=== PATIENT | female | born 1965 | race Caucasian/White ===

== ENCOUNTER 2020-05-22 12:21 | Inpatient (IN) ==
[2020-05-22] MEDS ORDERED: Ondansetron ODT 4 MG TAB.RAPDIS PO PRN (14:49)
[2020-05-22] MEDS: *HR* OxyCODONE Immed Rel 5 MG TABLET PO PRN ×2 (15:21→21:17)
[2020-05-22] MEDS: carvediloL 25 MG TABLET PO SCH (16:44)
[2020-05-22] MEDS: Furosemide 20 MG TABLET PO SCH (16:45)
[2020-05-22] MEDS: Apixaban 5 MG TABLET PO SCH (21:16)
[2020-05-22] MEDS: Sacubitril/Valsartan 24/26 MG 1 TABLET PO SCH (21:20)
[2020-05-23] MEDS: *HR* OxyCODONE Immed Rel 5 MG TABLET PO PRN ×2 (06:21→15:26)
[2020-05-23 06:42] LABS: Basophils # 0.1 K/mcL (0.0-0.2); Basophils % 0.8 %; Eosinophils # 0.5 K/mcL (0.0-0.6); Eosinophils % 7.6 %; Hematocrit 37.9 % (35.3-44.9); Hemoglobin 11.8 g/dL (11.5-15.4); Immature Granulocytes % 0.2 % (0-4); Lymphocytes # 1.3 K/mcL (0.6-4.6); Lymphocytes % 20.2 %; Mean Corpuscular HGB Conc 31.1 g/dL (31.6-35.5); Mean Corpuscular Hemoglobin 29.9 pg (28.0-33.3); Mean Corpuscular Volume 96.2 fL (83.0-100.0); Mean Platelet Volume 10.1 fL (9.4-12.4); Monocytes # 0.6 K/mcL (0.0-1.3); Monocytes % 9.9 %; Platelet Count 315 K/mcL (140-400); Red Blood Count 3.94 M/mcL (3.82-4.97); Red Cell Distribution Width 14.8 % (11.5-14.5); Segmented Neutrophils % 61.3 %; White Blood Count 6.5 K/mcL (4.3-11.1)
[2020-05-23 07:00] LABS: BUN/Creatinine Ratio 28 (6-26); Blood Urea Nitrogen 22 mg/dL (6-20); Calcium 9.5 mg/dL (8.6-10.3); Carbon Dioxide 35 mEq/L (23-29); Chloride 101 mEq/L (98-107); Glucose 95 mg/dL (70-105); Osmolality,Calculated 293 (280-300); Sodium 140 mEq/L (136-145); eGFR For African Americans > 60 (> 60); eGFR For Non-African Americans > 60 (> 60)
[2020-05-23] MEDS: Multivit/Ca/Min/Fe/FA 1 TAB TABLET PO SCH (08:33)
[2020-05-23] MEDS: DilTIAZem CD (24hr) 180 MG CAP.ER.24H PO SCH (08:33)
[2020-05-23] MEDS: Spironolactone 25 MG TABLET PO SCH (08:33)
[2020-05-23] MEDS: Apixaban 5 MG TABLET PO SCH ×2 (08:33→21:56)
[2020-05-23] MEDS: carvediloL 25 MG TABLET PO SCH ×2 (08:33→17:27)
[2020-05-23] MEDS: Aspirin Enteric Coated 81 MG Tablet PO SCH (08:33)
[2020-05-23] MEDS: Furosemide 20 MG TABLET PO SCH (08:34)
[2020-05-23] MEDS: Cyanocobalamin (B-12) 1,000 MCG TABLET PO SCH (08:34)
[2020-05-23] MEDS: Loratadine 10 MG TABLET PO SCH (08:34)
[2020-05-23] MEDS: Acetaminophen 325 MG TABLET PO PRN ×2 (08:41→21:55)
[2020-05-23] MEDS: Sacubitril/Valsartan 24/26 MG 1 TABLET PO SCH ×2 (08:42→21:38)
[2020-05-23] MEDS ORDERED: SUMAtriptan succinate 50 MG TABLET PO PRN (10:38)
[2020-05-23] MEDS ORDERED: *HR* OxyCODONE Immed Rel 5 MG TABLET PO SCH ×2 (10:45→18:00)
[2020-05-24] MEDS: *HR* OxyCODONE Immed Rel 5 MG TABLET PO PRN ×4 (00:17→23:32)
[2020-05-24 08:03] LABS: Alanine Aminotransferase 9 Units/L (7-52); Albumin 3.1 g/dL (3.5-5.7); Albumin/Globulin Ratio 0.9 (1.1-2.2); Alkaline Phosphatase 93 Units/L (34-104); Aspartate Amino Transferase 12 Units/L (13-39); BUN/Creatinine Ratio 27 (6-26); Bilirubin,Total 0.5 mg/dL (0.3-1.0); Blood Urea Nitrogen 21 mg/dL (6-20); Calcium 9.3 mg/dL (8.6-10.3); Carbon Dioxide 29 mEq/L (23-29); Chloride 103 mEq/L (98-107); Globulin 3.4 g/dL (2.4-3.5); Glucose 89 mg/dL (70-105); Magnesium 1.9 mg/dL (1.6-2.6); Osmolality,Calculated 292 (280-300); Potassium 3.9 mEq/L (3.5-5.1); Sodium 140 mEq/L (136-145); Total Protein 6.5 g/dL (6.4-8.9); eGFR For African Americans > 60 (> 60); eGFR For Non-African Americans > 60 (> 60)
[2020-05-24] MEDS ORDERED: *HR* OxyCODONE Immed Rel 5 MG TABLET PO SCH (09:00)
[2020-05-24] MEDS: DilTIAZem CD (24hr) 180 MG CAP.ER.24H PO SCH (09:02)
[2020-05-24] MEDS: Spironolactone 25 MG TABLET PO SCH (09:03)
[2020-05-24] MEDS: Apixaban 5 MG TABLET PO SCH ×2 (09:03→20:46)
[2020-05-24] MEDS: Aspirin Enteric Coated 81 MG Tablet PO SCH (09:03)
[2020-05-24] MEDS: Cyanocobalamin (B-12) 1,000 MCG TABLET PO SCH (09:03)
[2020-05-24] MEDS: Loratadine 10 MG TABLET PO SCH (09:03)
[2020-05-24] MEDS: Furosemide 40 MG TABLET PO SCH (09:03)
[2020-05-24] MEDS: Multivit/Ca/Min/Fe/FA 1 TAB TABLET PO SCH (09:03)
[2020-05-24] MEDS: Sacubitril/Valsartan 24/26 MG 1 TABLET PO SCH ×2 (09:03→20:47)
[2020-05-24] MEDS: carvediloL 25 MG TABLET PO SCH ×2 (09:04→17:14)
[2020-05-24] MEDS: Acetaminophen 325 MG TABLET PO PRN (20:46)
[2020-05-25] MEDS: Furosemide 40 MG TABLET PO SCH (08:20)
[2020-05-25] MEDS: Loratadine 10 MG TABLET PO SCH (08:20)
[2020-05-25] MEDS: Aspirin Enteric Coated 81 MG Tablet PO SCH (08:20)
[2020-05-25] MEDS: Apixaban 5 MG TABLET PO SCH ×2 (08:20→20:58)
[2020-05-25] MEDS: *HR* OxyCODONE Immed Rel 5 MG TABLET PO PRN ×2 (08:20→20:59)
[2020-05-25] MEDS: Multivit/Ca/Min/Fe/FA 1 TAB TABLET PO SCH (08:20)
[2020-05-25] MEDS: carvediloL 25 MG TABLET PO SCH ×2 (08:21→16:58)
[2020-05-25] MEDS: Cyanocobalamin (B-12) 1,000 MCG TABLET PO SCH (08:21)
[2020-05-25] MEDS: Spironolactone 25 MG TABLET PO SCH (08:21)
[2020-05-25] MEDS: DilTIAZem CD (24hr) 180 MG CAP.ER.24H PO SCH (08:21)
[2020-05-25] MEDS: Sacubitril/Valsartan 24/26 MG 1 TABLET PO SCH ×2 (08:25→20:58)
[2020-05-25 09:20] LABS: Alanine Aminotransferase 8 Units/L (7-52); Albumin 3.1 g/dL (3.5-5.7); Albumin/Globulin Ratio 0.9 (1.1-2.2); Alkaline Phosphatase 94 Units/L (34-104); Aspartate Amino Transferase 13 Units/L (13-39); BUN/Creatinine Ratio 21 (6-26); Bilirubin,Total 0.5 mg/dL (0.3-1.0); Blood Urea Nitrogen 16 mg/dL (6-20); Calcium 9.3 mg/dL (8.6-10.3); Carbon Dioxide 32 mEq/L (23-29); Chloride 104 mEq/L (98-107); Globulin 3.5 g/dL (2.4-3.5); Glucose 90 mg/dL (70-105); Magnesium 1.9 mg/dL (1.6-2.6); Osmolality,Calculated 291 (280-300); Potassium 3.9 mEq/L (3.5-5.1); Sodium 140 mEq/L (136-145); Total Protein 6.6 g/dL (6.4-8.9); eGFR For African Americans > 60 (> 60); eGFR For Non-African Americans > 60 (> 60)
[2020-05-26] MEDS: Acetaminophen 325 MG TABLET PO PRN ×2 (01:01→21:46)
[2020-05-26] MEDS: *HR* OxyCODONE Immed Rel 5 MG TABLET PO PRN ×2 (06:40→14:33)
[2020-05-26] MEDS: Aspirin Enteric Coated 81 MG Tablet PO SCH (09:01)
[2020-05-26] MEDS: Apixaban 5 MG TABLET PO SCH ×2 (09:01→20:05)
[2020-05-26] MEDS: carvediloL 25 MG TABLET PO SCH ×2 (09:01→15:50)
[2020-05-26] MEDS: Loratadine 10 MG TABLET PO SCH (09:01)
[2020-05-26] MEDS: Multivit/Ca/Min/Fe/FA 1 TAB TABLET PO SCH (09:02)
[2020-05-26] MEDS: Spironolactone 25 MG TABLET PO SCH (09:02)
[2020-05-26] MEDS: DilTIAZem CD (24hr) 180 MG CAP.ER.24H PO SCH (09:02)
[2020-05-26] MEDS: Furosemide 40 MG TABLET PO SCH (09:02)
[2020-05-26] MEDS: Cyanocobalamin (B-12) 1,000 MCG TABLET PO SCH (09:02)
[2020-05-26] MEDS: Sacubitril/Valsartan 24/26 MG 1 TABLET PO SCH ×2 (09:05→19:52)
[2020-05-26 12:45] LABS: Alanine Aminotransferase 8 Units/L (7-52); Albumin 3.3 g/dL (3.5-5.7); Albumin/Globulin Ratio 0.9 (1.1-2.2); Alkaline Phosphatase 102 Units/L (34-104); Aspartate Amino Transferase 13 Units/L (13-39); BUN/Creatinine Ratio 20 (6-26); Bilirubin,Total 0.5 mg/dL (0.3-1.0); Blood Urea Nitrogen 15 mg/dL (6-20); Calcium 9.3 mg/dL (8.6-10.3); Carbon Dioxide 30 mEq/L (23-29); Chloride 105 mEq/L (98-107); Globulin 3.7 g/dL (2.4-3.5); Glucose 77 mg/dL (70-105); Magnesium 1.9 mg/dL (1.6-2.6); Osmolality,Calculated 296 (280-300); Potassium 3.9 mEq/L (3.5-5.1); Sodium 143 mEq/L (136-145); eGFR For African Americans > 60 (> 60); eGFR For Non-African Americans > 60 (> 60)
[2020-05-26] MEDS: Magnesium Oxide 400 MG TABLET PO SCH (14:33)
[2020-05-26] MEDS ORDERED: 0.9 % Sodium Chloride 1,000 ML IVC ONE (23:24)
[2020-05-26] MEDS: Ibuprofen 800 MG TABLET PO PRN (23:49)
[2020-05-27 07:27] LABS: Alanine Aminotransferase 6 Units/L (7-52); Albumin 2.9 g/dL (3.5-5.7); Albumin/Globulin Ratio 0.9 (1.1-2.2); Alkaline Phosphatase 88 Units/L (34-104); Aspartate Amino Transferase 9 Units/L (13-39); BUN/Creatinine Ratio 21 (6-26); Bilirubin,Total 0.5 mg/dL (0.3-1.0); Blood Urea Nitrogen 17 mg/dL (6-20); Calcium 8.7 mg/dL (8.6-10.3); Carbon Dioxide 32 mEq/L (23-29); Chloride 103 mEq/L (98-107); Globulin 3.2 g/dL (2.4-3.5); Glucose 89 mg/dL (70-105); Magnesium 1.9 mg/dL (1.6-2.6); Osmolality,Calculated 287 (280-300); Sodium 138 mEq/L (136-145); Total Protein 6.1 g/dL (6.4-8.9); eGFR For African Americans > 60 (> 60); eGFR For Non-African Americans > 60 (> 60)
[2020-05-27] MEDS: *HR* OxyCODONE Immed Rel 5 MG TABLET PO PRN ×2 (08:30→16:50)
[2020-05-27] MEDS: DilTIAZem CD (24hr) 180 MG CAP.ER.24H PO SCH (08:31)
[2020-05-27] MEDS: Cyanocobalamin (B-12) 1,000 MCG TABLET PO SCH (08:31)
[2020-05-27] MEDS: Multivit/Ca/Min/Fe/FA 1 TAB TABLET PO SCH (08:31)
[2020-05-27] MEDS: Sacubitril/Valsartan 24/26 MG 1 TABLET PO SCH ×2 (08:31→19:56)
[2020-05-27] MEDS: Furosemide 40 MG TABLET PO SCH (08:32)
[2020-05-27] MEDS: carvediloL 25 MG TABLET PO SCH (08:32)
[2020-05-27] MEDS: Magnesium Oxide 400 MG TABLET PO SCH (08:32)
[2020-05-27] MEDS: Aspirin Enteric Coated 81 MG Tablet PO SCH (08:32)
[2020-05-27] MEDS: Loratadine 10 MG TABLET PO SCH (08:32)
[2020-05-27] MEDS: Apixaban 5 MG TABLET PO SCH ×2 (08:32→19:55)
[2020-05-27] MEDS: Spironolactone 25 MG TABLET PO SCH (08:32)
[2020-05-27] MEDS: Acetaminophen 325 MG TABLET PO PRN (13:03)
[2020-05-27] MEDS: carvediloL 6.25 MG TABLET PO SCH (16:41)
[2020-05-27] MEDS: Ibuprofen 800 MG TABLET PO PRN (19:55)
[2020-05-28] MEDS: *HR* OxyCODONE Immed Rel 5 MG TABLET PO PRN ×4 (01:19→21:46)
[2020-05-28 06:57] LABS: Alanine Aminotransferase 7 Units/L (7-52); Albumin/Globulin Ratio 0.9 (1.1-2.2); Alkaline Phosphatase 103 Units/L (34-104); Aspartate Amino Transferase 9 Units/L (13-39); BUN/Creatinine Ratio 22 (6-26); Bilirubin,Total 0.5 mg/dL (0.3-1.0); Blood Urea Nitrogen 20 mg/dL (6-20); Calcium 8.7 mg/dL (8.6-10.3); Carbon Dioxide 33 mEq/L (23-29); Chloride 103 mEq/L (98-107); Globulin 3.3 g/dL (2.4-3.5); Glucose 80 mg/dL (70-105); Osmolality,Calculated 290 (280-300); Potassium 4.3 mEq/L (3.5-5.1); Sodium 139 mEq/L (136-145); Total Protein 6.3 g/dL (6.4-8.9); eGFR For African Americans > 60 (> 60); eGFR For Non-African Americans > 60 (> 60)
[2020-05-28] MEDS: Apixaban 5 MG TABLET PO SCH ×2 (08:41→21:46)
[2020-05-28] MEDS: Loratadine 10 MG TABLET PO SCH (08:42)
[2020-05-28] MEDS: DilTIAZem CD (24hr) 180 MG CAP.ER.24H PO SCH (08:42)
[2020-05-28] MEDS: Aspirin Enteric Coated 81 MG Tablet PO SCH (08:42)
[2020-05-28] MEDS: Cyanocobalamin (B-12) 1,000 MCG TABLET PO SCH (08:42)
[2020-05-28] MEDS: Magnesium Oxide 400 MG TABLET PO SCH (08:42)
[2020-05-28] MEDS: Spironolactone 25 MG TABLET PO SCH (08:43)
[2020-05-28] MEDS: Sacubitril/Valsartan 24/26 MG 1 TABLET PO SCH ×2 (08:43→21:46)
[2020-05-28] MEDS: Multivit/Ca/Min/Fe/FA 1 TAB TABLET PO SCH (08:43)
[2020-05-28] MEDS: carvediloL 6.25 MG TABLET PO SCH ×2 (08:43→16:23)
[2020-05-28] MEDS: Furosemide 40 MG TABLET PO SCH (08:43)
[2020-05-28] MEDS: Acetaminophen 325 MG TABLET PO PRN (11:40)
[2020-05-29] MEDS: *HR* OxyCODONE Immed Rel 5 MG TABLET PO PRN ×3 (03:05→17:15)
[2020-05-29] MEDS: Multivit/Ca/Min/Fe/FA 1 TAB TABLET PO SCH (09:18)
[2020-05-29] MEDS: DilTIAZem CD (24hr) 180 MG CAP.ER.24H PO SCH (09:19)
[2020-05-29] MEDS: Loratadine 10 MG TABLET PO SCH (09:20)
[2020-05-29] MEDS: Furosemide 40 MG TABLET PO SCH (09:20)
[2020-05-29] MEDS: carvediloL 6.25 MG TABLET PO SCH ×2 (09:21→17:16)
[2020-05-29] MEDS: Cyanocobalamin (B-12) 1,000 MCG TABLET PO SCH (09:21)
[2020-05-29] MEDS: Spironolactone 25 MG TABLET PO SCH (09:21)
[2020-05-29] MEDS: Aspirin Enteric Coated 81 MG Tablet PO SCH (09:21)
[2020-05-29] MEDS: Sacubitril/Valsartan 24/26 MG 1 TABLET PO SCH ×2 (09:22→20:41)
[2020-05-29] MEDS: Apixaban 5 MG TABLET PO SCH ×2 (09:22→20:41)
[2020-05-29] MEDS: Magnesium Oxide 400 MG TABLET PO SCH (09:22)
[2020-05-29] MEDS: Acetaminophen 325 MG TABLET PO PRN ×2 (12:08→20:41)
[2020-05-30] MEDS: *HR* OxyCODONE Immed Rel 5 MG TABLET PO PRN ×2 (00:41→08:08)
[2020-05-30 07:17] VITALS: BP 119/79
[2020-05-30] MEDS: Multivit/Ca/Min/Fe/FA 1 TAB TABLET PO SCH (08:07)
[2020-05-30] MEDS: Loratadine 10 MG TABLET PO SCH (08:07)
[2020-05-30] MEDS: Magnesium Oxide 400 MG TABLET PO SCH (08:07)
[2020-05-30] MEDS: Apixaban 5 MG TABLET PO SCH (08:07)
[2020-05-30] MEDS: Furosemide 40 MG TABLET PO SCH (08:08)
[2020-05-30] MEDS: carvediloL 6.25 MG TABLET PO SCH (08:08)
[2020-05-30] MEDS: Spironolactone 25 MG TABLET PO SCH (08:08)
[2020-05-30] MEDS: DilTIAZem CD (24hr) 180 MG CAP.ER.24H PO SCH (08:08)
[2020-05-30] MEDS: Aspirin Enteric Coated 81 MG Tablet PO SCH (08:08)
[2020-05-30] MEDS: Cyanocobalamin (B-12) 1,000 MCG TABLET PO SCH (08:08)
[2020-05-30] MEDS: Acetaminophen 325 MG TABLET PO PRN (10:30)
[2020-05-30] MEDS: Sacubitril/Valsartan 24/26 MG 1 TABLET PO SCH (12:22)
== END 2020-05-30 15:21 | disposition home health service (06) | DRG 945 ==
LOC: INPPIK 14:32
PROVIDERS: ADMIT Family Medicine; ATTEND Family Medicine

== ENCOUNTER 2021-01-09 11:16 | Inpatient (IN) ==
[2021-01-09] MEDS ORDERED: 0.9 % Sodium Chloride 1,000 ML IV ONE (11:33)
[2021-01-09 11:56] LABS: Basophils % 0.3 %; Eosinophils # 0.1 K/mcL (0.0-0.6); Eosinophils % 1.4 %; Hematocrit 35.1 % (35.3-44.9); Hemoglobin 11.3 g/dL (11.5-15.4); Immature Granulocytes % 0.3 % (0-4); Lymphocytes # 1.2 K/mcL (0.6-4.6); Lymphocytes % 18.1 %; Mean Corpuscular HGB Conc 32.2 g/dL (31.6-35.5); Mean Corpuscular Hemoglobin 30.7 pg (28.0-33.3); Mean Corpuscular Volume 95.4 fL (83.0-100.0); Mean Platelet Volume 10.9 fL (9.4-12.4); Monocytes # 0.6 K/mcL (0.0-1.3); Monocytes % 8.6 %; Neutrophils # 4.7 K/mcL (1.6-8.9); Platelet Count 232 K/mcL (140-400); Red Blood Count 3.68 M/mcL (3.82-4.97); Red Cell Distribution Width 14.3 % (11.5-14.5); Segmented Neutrophils % 71.3 %; White Blood Count 6.6 K/mcL (4.3-11.1)
[2021-01-09 12:07] LABS: INR 1.3; Prothrombin Time 14.3 Seconds (9.4-12.1)
[2021-01-09 12:11] LABS: Alanine Aminotransferase 12 Units/L (7-52); Albumin 3.8 g/dL (3.5-5.7); Albumin/Globulin Ratio 0.9 (1.1-2.2); Alkaline Phosphatase 56 Units/L (34-104); Aspartate Amino Transferase 12 Units/L (13-39); BUN/Creatinine Ratio 26 (6-26); Bilirubin,Total 0.6 mg/dL (0.3-1.0); Blood Urea Nitrogen 26 mg/dL (6-20); Calcium 10.1 mg/dL (8.6-10.3); Carbon Dioxide 26 mEq/L (23-29); Chloride 104 mEq/L (98-107); Globulin 4.1 g/dL (2.4-3.5); Glucose 101 mg/dL (70-105); Osmolality,Calculated 291 (280-300); Sodium 138 mEq/L (136-145); Total Protein 7.9 g/dL (6.4-8.9); eGFR For African Americans > 60 (> 60); eGFR For Non-African Americans 57 (> 60)
[2021-01-09] MEDS ORDERED: Doxycycline 100 MG in 0.9 % Sodium Chloride Mini Bag 100 ML IVPB ONE (12:49)
[2021-01-09] MEDS ORDERED: Furosemide 20 MG/2 ML VIAL IVP ONE (12:52)
[2021-01-09] MEDS: Furosemide 40 MG/4 ML VIAL IVP ONE ×2 (12:55)
[2021-01-09] MEDS ORDERED: Ondansetron 4 MG/2 ML VIAL IVP PRN (13:35)
[2021-01-09] MEDS ORDERED: Naloxone 0.4 MG/ML INJ IVP PRN (13:35)
[2021-01-09] MEDS ORDERED: Ipratropium/Albuterol Neb 3 ML IH PRN (13:45)
[2021-01-09] MEDS ORDERED: SUMAtriptan succinate 50 MG TABLET PO PRN (13:45)
[2021-01-09] MEDS: Acetaminophen 325 MG TABLET PO PRN (17:12)
[2021-01-09] MEDS: carvediloL 6.25 MG TABLET PO SCH (17:13)
[2021-01-09] MEDS ORDERED: *HR* Metoprolol 5 MG/5 ML VIAL IVP PRN (18:37)
[2021-01-09] MEDS: Apixaban 5 MG TABLET PO SCH (20:45)
[2021-01-09] MEDS: Sacubitril/Valsartan 24/26 MG 1 TABLET PO SCH (20:45)
[2021-01-09] MEDS: Furosemide 20 MG/2 ML VIAL IVP SCH (20:49)
[2021-01-10] MEDS: Doxycycline 100 MG in 0.9 % Sodium Chloride Mini Bag 100 ML IVPB SCH ×2 (00:18→16:23)
[2021-01-10] MEDS: Acetaminophen 325 MG TABLET PO PRN ×2 (07:59→19:41)
[2021-01-10] MEDS: Cyanocobalamin (B-12) 1,000 MCG TABLET PO SCH (08:00)
[2021-01-10] MEDS: Furosemide 20 MG/2 ML VIAL IVP SCH ×2 (08:00→19:42)
[2021-01-10] MEDS: Sacubitril/Valsartan 24/26 MG 1 TABLET PO SCH ×2 (08:00→19:42)
[2021-01-10] MEDS: DilTIAZem CD (24hr) 180 MG CAP.ER.24H PO SCH (08:00)
[2021-01-10] MEDS: carvediloL 6.25 MG TABLET PO SCH ×4 (08:00→16:36)
[2021-01-10] MEDS: Aspirin Enteric Coated 81 MG Tablet PO SCH (08:00)
[2021-01-10] MEDS: Spironolactone 25 MG TABLET PO SCH (08:00)
[2021-01-10] MEDS: Loratadine 10 MG TABLET PO SCH (08:00)
[2021-01-10] MEDS: Magnesium Oxide 400 MG TABLET PO SCH (08:00)
[2021-01-10] MEDS: Apixaban 5 MG TABLET PO SCH ×2 (08:00→19:41)
[2021-01-10] MEDS: Multivit/Ca/Min/Fe/FA 1 TAB TABLET PO SCH (08:00)
[2021-01-10 08:24] LABS: Hematocrit 31.8 % (35.3-44.9); Hemoglobin 10.2 g/dL (11.5-15.4); Mean Corpuscular HGB Conc 32.1 g/dL (31.6-35.5); Mean Corpuscular Hemoglobin 30.9 pg (28.0-33.3); Mean Corpuscular Volume 96.4 fL (83.0-100.0); Mean Platelet Volume 10.7 fL (9.4-12.4); Platelet Count 272 K/mcL (140-400); Red Cell Distribution Width 14.4 % (11.5-14.5); White Blood Count 5.3 K/mcL (4.3-11.1)
[2021-01-10 08:41] LABS: BUN/Creatinine Ratio 26 (6-26); Blood Urea Nitrogen 24 mg/dL (6-20); Calcium 9.3 mg/dL (8.6-10.3); Carbon Dioxide 28 mEq/L (23-29); Chloride 109 mEq/L (98-107); Chol/HDL Ratio 3.7 (0-4.9); Cholesterol 146 mg/dL (< 200); Glucose 81 mg/dL (70-105); HDL Cholesterol 40 mg/dL (40-59); LDL Cholesterol,Calculated 93 mg/dL (< 100); Magnesium 2.1 mg/dL (1.6-2.6); Osmolality,Calculated 295 (280-300); Potassium 3.8 mEq/L (3.5-5.1); Sodium 141 mEq/L (136-145); Triglycerides 66 mg/dL (< 150); eGFR For African Americans > 60 (> 60); eGFR For Non-African Americans > 60 (> 60)
[2021-01-11] MEDS: Doxycycline 100 MG in 0.9 % Sodium Chloride Mini Bag 100 ML IVPB SCH (01:17)
[2021-01-11 06:25] VITALS: BP 122/77; PULSE 101; RESP 21; TEMP 98.4; O2SAT 98
[2021-01-11] MEDS: Acetaminophen 325 MG TABLET PO PRN ×2 (07:27→16:05)
[2021-01-11] MEDS: Sacubitril/Valsartan 24/26 MG 1 TABLET PO SCH (07:28)
[2021-01-11] MEDS: Spironolactone 25 MG TABLET PO SCH (07:28)
[2021-01-11] MEDS: Multivit/Ca/Min/Fe/FA 1 TAB TABLET PO SCH (07:28)
[2021-01-11] MEDS: Aspirin Enteric Coated 81 MG Tablet PO SCH (07:28)
[2021-01-11] MEDS: Cyanocobalamin (B-12) 1,000 MCG TABLET PO SCH (07:28)
[2021-01-11] MEDS: carvediloL 6.25 MG TABLET PO SCH ×4 (07:28→16:06)
[2021-01-11] MEDS: DilTIAZem CD (24hr) 180 MG CAP.ER.24H PO SCH (07:28)
[2021-01-11] MEDS: Magnesium Oxide 400 MG TABLET PO SCH (07:29)
[2021-01-11] MEDS: Apixaban 5 MG TABLET PO SCH (07:29)
[2021-01-11] MEDS: Furosemide 20 MG/2 ML VIAL IVP SCH (07:29)
[2021-01-11] MEDS: Loratadine 10 MG TABLET PO SCH (07:29)
[2021-01-11 08:22] LABS: Basophils # 0.1 K/mcL (0.0-0.2); Eosinophils # 0.2 K/mcL (0.0-0.6); Eosinophils % 3.7 %; Hematocrit 32.2 % (35.3-44.9); Immature Granulocytes % 0.5 % (0-4); Lymphocytes # 1.8 K/mcL (0.6-4.6); Lymphocytes % 32.1 %; Mean Corpuscular HGB Conc 31.1 g/dL (31.6-35.5); Mean Corpuscular Hemoglobin 30.1 pg (28.0-33.3); Mean Platelet Volume 10.2 fL (9.4-12.4); Monocytes # 0.6 K/mcL (0.0-1.3); Monocytes % 10.6 %; Platelet Count 267 K/mcL (140-400); Red Blood Count 3.32 M/mcL (3.82-4.97); Red Cell Distribution Width 14.1 % (11.5-14.5); Segmented Neutrophils % 52.1 %; White Blood Count 5.7 K/mcL (4.3-11.1)
[2021-01-11 08:36] LABS: BUN/Creatinine Ratio 21 (6-26); Blood Urea Nitrogen 23 mg/dL (6-20); Calcium 9.3 mg/dL (8.6-10.3); Carbon Dioxide 31 mEq/L (23-29); Chloride 106 mEq/L (98-107); Glucose 80 mg/dL (70-105); Osmolality,Calculated 293 (280-300); Potassium 3.8 mEq/L (3.5-5.1); Sodium 140 mEq/L (136-145); eGFR For African Americans > 60 (> 60); eGFR For Non-African Americans 52 (> 60)
[2021-01-11] MEDS ORDERED: Doxycycline 100 MG CAPSULE PO SCH (18:00)
[2021-01-12] MEDS ORDERED: Furosemide 40 MG TABLET PO SCH (09:00)
== END 2021-01-11 17:05 | disposition home or self-care (01) | DRG 602 ==
LOC: INPPIK 11:16 → EMEROOPIK 11:16 → INPPIK 14:12
PROVIDERS: ADMIT Family Medicine; ATTEND Family Medicine